=== PATIENT | male | born 1965 | race Caucasian/White ===

== ENCOUNTER 2018-12-01 22:29 | Inpatient (IN) | payer MEDICAID ==
[~2018-12-01] VITALS: Ht 165.1 cm; Wt 51.7 kg
[2018-12-01 22:40] VITALS: Ht 165.1 cm; Wt 51.7 kg
[2018-12-01 23:46] LABS: PLATELET COUNT 165 x10^3mcL (130-400); RED CELL DISTRIBUTION WIDTH 13.3 % (11.5-14.5)
[2018-12-01 23:55] LABS: CALCIUM 8.4 mg/dL (8.5-10.1); CARBON DIOXIDE 24.8 mmol/L (21-32); CHLORIDE SERUM 99 mmol/L (98-107); CREATININE SERUM 0.7 mg/dL (0.7-1.3); GFR1 > 60 mL/min; GLUCOSE SERUM 154 mg/dL (74-106); POTASSIUM SERUM 3.6 mmol/L (3.5-5.1); SODIUM SERUM 137 mmol/L (136-145)
[2018-12-02 00:01] LABS: ALKALINE PHOSPHATASE 204 U/L (46-116); ALT/SGPT 64 U/L (16-63); AST/SGOT 79 U/L (15-37); BILIRUBIN TOTAL 0.8 mg/dL (0.20-1.00); LIPASE 71 IU/L (73-393)
[2018-12-02 00:06] LABS: ALBUMIN 3.3 g/dL (3.4-5.0)
[2018-12-02 01:24] LABS: AMYLASE 31 U/L (25-115); HDL CHOLESTEROL 50 mg/dL (40-60); PHOSPHOROUS 3.5 mg/dL (2.5-4.9)
[2018-12-02 01:32] LABS: CHOLESTEROL 257 mg/dL (<200); CHOLESTEROL/HDL RATIO 5.1; TRIGLYCERIDES 586 mg/dL (<150)
[2018-12-02 04:20] VITALS: BP 119/63
[2018-12-02 05:52] VITALS: BP 130/74
[2018-12-02 06:13] LABS: BASOPHIL % 0.2 % (0-2); PLATELET COUNT 152 x10^3mcL (130-400); RED CELL DISTRIBUTION WIDTH 13.2 % (11.5-14.5)
[2018-12-02 06:34] LABS: CALCIUM 7.7 mg/dL (8.5-10.1); CARBON DIOXIDE 24.1 mmol/L (21-32); CHLORIDE SERUM 104 mmol/L (98-107); CREATININE SERUM 0.8 mg/dL (0.7-1.3); GFR1 > 60 mL/min; GLUCOSE SERUM 132 mg/dL (74-106); MAGNESIUM 1.7 mg/dL (1.8-2.4); POTASSIUM SERUM 3.1 mmol/L (3.5-5.1); SODIUM SERUM 139 mmol/L (136-145)
[2018-12-02 09:22] VITALS: BP 111/56
[2018-12-02 10:59] LABS: microscopic required? NO
[2018-12-02 11:03] LABS: urine erythrocyte NEGATIVE (NEGATIVE)
[2018-12-02 12:06] LABS: AMPHETAMINE QUAL UR NONE DETECTED (See below)
[2018-12-02 17:17] VITALS: BP 135/83
[2018-12-02 21:29] VITALS: BP 108/62
[2018-12-03 05:58] VITALS: BP 120/68
[2018-12-03 06:36] LABS: CALCIUM 7.6 mg/dL (8.5-10.1); CARBON DIOXIDE 24.3 mmol/L (21-32); CHLORIDE SERUM 108 mmol/L (98-107); GFR1 > 60 mL/min; GLUCOSE SERUM 138 mg/dL (74-106); MAGNESIUM 2.4 mg/dL (1.8-2.4); POTASSIUM SERUM 3.4 mmol/L (3.5-5.1); SODIUM SERUM 143 mmol/L (136-145)
[2018-12-03 06:46] LABS: PLATELET COUNT 162 x10^3mcL (130-400); RED CELL DISTRIBUTION WIDTH 13.3 % (11.5-14.5)
[2018-12-03 06:59] LABS: BASOPHIL % 0 % (0-2)
[2018-12-03 15:06] VITALS: BP 123/45
[2018-12-03 21:26] VITALS: BP 118/56
[2018-12-04 05:30] VITALS: BP 113/61
[2018-12-04 06:46] LABS: CALCIUM 7.2 mg/dL (8.5-10.1); CARBON DIOXIDE 26.7 mmol/L (21-32); CHLORIDE SERUM 110 mmol/L (98-107); CREATININE SERUM 0.9 mg/dL (0.7-1.3); GFR1 > 60 mL/min; POTASSIUM SERUM 3.7 mmol/L (3.5-5.1); SODIUM SERUM 142 mmol/L (136-145)
[2018-12-04 06:47] LABS: BASOPHIL % 0.3 % (0-2); RED CELL DISTRIBUTION WIDTH 14.1 % (11.5-14.5)
[2018-12-04 07:40] VITALS: BP 105/54
[2018-12-04 07:47] LABS: GLUCOSE SERUM 114 mg/dL (74-106)
[2018-12-04 07:53] LABS: PLATELET COUNT 126 x10^3mcL (130-400)
[2018-12-04 16:17] VITALS: BP 110/56; BP 113/74
[2018-12-04 21:33] VITALS: BP 113/42
[2018-12-05 06:23] VITALS: BP 118/54
[2018-12-05 06:33] LABS: BASOPHIL % 0.2 % (0-2); PLATELET COUNT 139 x10^3mcL (130-400); RED CELL DISTRIBUTION WIDTH 13.7 % (11.5-14.5)
[2018-12-05 06:39] LABS: CALCIUM 7.3 mg/dL (8.5-10.1); CARBON DIOXIDE 28.8 mmol/L (21-32); CHLORIDE SERUM 109 mmol/L (98-107); CREATININE SERUM 0.6 mg/dL (0.7-1.3); GFR1 > 60 mL/min; GLUCOSE SERUM 124 mg/dL (74-106); POTASSIUM SERUM 3.3 mmol/L (3.5-5.1); SODIUM SERUM 142 mmol/L (136-145)
[2018-12-05 09:00] VITALS: BP 100/57
[2018-12-05 16:30] VITALS: BP 108/33
[2018-12-05 20:33] VITALS: BP 122/58
[2018-12-06 06:09] LABS: BASOPHIL % 0.1 % (0-2); PLATELET COUNT 204 x10^3mcL (130-400); RED CELL DISTRIBUTION WIDTH 13.4 % (11.5-14.5)
[2018-12-06 06:11] VITALS: BP 112/68
[2018-12-06 06:13] VITALS: BP 106/53
[2018-12-06 06:40] LABS: CALCIUM 7.8 mg/dL (8.5-10.1); CARBON DIOXIDE 26.4 mmol/L (21-32); CHLORIDE SERUM 107 mmol/L (98-107); CREATININE SERUM 0.6 mg/dL (0.7-1.3); GFR1 > 60 mL/min; GLUCOSE SERUM 99 mg/dL (74-106); POTASSIUM SERUM 3.7 mmol/L (3.5-5.1); SODIUM SERUM 141 mmol/L (136-145)
[2018-12-06 09:30] VITALS: BP 111/36
[2018-12-06 18:46] VITALS: BP 107/34
[2018-12-06 21:52] VITALS: BP 102/53
[2018-12-07 05:47] VITALS: BP 110/47
[2018-12-07 06:52] LABS: BASOPHIL % 0.6 % (0-2); PLATELET COUNT 233 x10^3mcL (130-400); RED CELL DISTRIBUTION WIDTH 13.4 % (11.5-14.5)
[2018-12-07 06:56] LABS: CARBON DIOXIDE 26.1 mmol/L (21-32); CHLORIDE SERUM 106 mmol/L (98-107); CREATININE SERUM 0.6 mg/dL (0.7-1.3); GFR1 > 60 mL/min; GLUCOSE SERUM 90 mg/dL (74-106); POTASSIUM SERUM 3.7 mmol/L (3.5-5.1); SODIUM SERUM 140 mmol/L (136-145)
[2018-12-07 09:25] VITALS: BP 108/77
[2018-12-07] MEDS ORDERED: IBUPROFEN400 MG PO (11:58)
[2018-12-07] MEDS ORDERED: NICOTINE T14 MG/24 H TD (12:14)
[2018-12-07 12:32] VITALS: BP 108/77
== END 2018-12-07 14:20 | disposition home or self-care (01) | DRG 230 ==
LOC: ED 22:29 → MU 12-02 00:57
PROVIDERS: Emergency Medicine; Surgery; ADMIT Family Medicine
PROC: 0D980ZZ Drainage of Small Intestine, Open Approach (ICD-10-PCS; 2018-12-03)
PROC: 0DB80ZZ Excision of Small Intestine, Open Approach (ICD-10-PCS; principal; 2018-12-03 08:00)
DX: K55.021 Focal (segmental) acute infarction of small intestine (principal); N17.0 Acute kidney failure with tubular necrosis; K56.51 Intestinal adhesions [bands], with partial obstruction; E83.42 Hypomagnesemia; E44.1 Mild protein-calorie malnutrition; E87.6 Hypokalemia; E78.5 Hyperlipidemia, unspecified; D64.9 Anemia, unspecified; R74.0 Nonspecific elevation of levels of transaminase and lactic acid dehydrogenase [LDH]; F10.20 Alcohol dependence, uncomplicated; F10.10 Alcohol abuse, uncomplicated; F17.210 Nicotine dependence, cigarettes, uncomplicated; Z68.1 Body mass index [BMI] 19.9 or less, adult
CPT/HCPCS: 83880; 90658; 90732; 97110-GP; 97116-GP; 97530-GP; G0480; J0330; J1885; J2175; J2250; J2270; J2405; J2543; J2704; J2765; J3010; J3480; J3490; J7030; J7120; Q0092; Q9967